=== PATIENT | female | born 1980 | race Caucasian/White ===

== ENCOUNTER 2017-01-13 18:59 | Emergency (ER) | payer OTHER ==
[2017-01-13 19:27] LABS: PH,URINE 6.5 (5.0 - 9.0); URINE BILIRUBIN NEGATIVE (NEGATIVE); URINE BLOOD TRACE (NEGATIVE); URINE GLUCOSE (UA) NORMAL (NORMAL); URINE KETONE NEGATIVE (NEGATIVE); URINE LEUKOCYTE ESTERASE TRACE (NEGATIVE); URINE NITRATE NEGATIVE (NEGATIVE); URINE PROTEIN NEGATIVE (NEGATIVE)
[2017-01-13 19:40] LABS: URINE AMORPHOUS SEDIMENT 2+; URINE BACTERIA 1+ (NONE SEEN); URINE RBC 0-5 /[HPF] (0-2); URINE WBC 0-5 /[HPF] (0-5)
[2017-01-13 19:50] LABS: BASO # 0.1 10_X3_uL (0.0-0.1); BASO % 0.7 % (0.1-1.2); EOS # 0.6 10_X3_uL (0.0-0.4); EOS % 5.8 % (0.7-5.8); GRAN # 6.8 10_X3_uL (1.6-6.1); GRAN % 63.7 % (34.0-71.1); HEMATOCRIT 44.7 % (34-45); HEMOGLOBIN 15.8 g/dL (11.2-15.7); LYMPH # 2.4 10_X3_uL (1.2-3.7); MEAN CORPUSCULAR HEMOGLOBIN 34.1 pg (27.0-33.0); MEAN CORPUSCULAR HGB CONC 35.3 g/dL (32.0-36.0); MEAN CORPUSCULAR VOLUME 96.3 fL (79-95); MEAN PLATELET VOLUME 10.3 fl (7.5-11.5); MONO # 0.7 10_X3_uL (0.2-0.9); MONO % 6.8 % (4.7-12.5); PLATELET COUNT 285 x10_3/uL (182-369); RED BLOOD COUNT 4.64 x10_6/uL (3.9-5.2); RED CELL DISTRIBUTION WIDTH 12.4 % (11.7-14.4); WHITE BLOOD COUNT 10.6 x10_3/uL (4.0-10.0)
[2017-01-13 20:01] LABS: BLOOD UREA NITROGEN 15 mg/dL (7-18); CALCIUM 9.7 mg/dL (8.7-10.7); CARBON DIOXIDE 26 mmol/L (21-32); CREATININE 0.8 mg/dL (0.6-1.3); GLUCOSE,RANDOM 92 mg/dL (70-99); SODIUM 140 mmol/L (136-145)
== END 2017-01-13 22:21 | disposition home or self-care (01) ==
LOC: ER 18:59
PROVIDERS: Emergency Medicine
DX: N20.0 Calculus of kidney (principal); K76.89 Other specified diseases of liver; N83.201 Unspecified ovarian cyst, right side; N83.202 Unspecified ovarian cyst, left side; R10.9 Unspecified abdominal pain; R10.31 Right lower quadrant pain; F41.9 Anxiety disorder, unspecified; G43.909 Migraine, unspecified, not intractable, without status migrainosus; F17.210 Nicotine dependence, cigarettes, uncomplicated; Z88.0 Allergy status to penicillin; Z88.8 Allergy status to other drugs, medicaments and biological substances; Z88.1 Allergy status to other antibiotic agents; Z79.899 Other long term (current) drug therapy
CPT/HCPCS: 36415; 74150; 80048; 81001; 81025; 85025; 96372; 99284-25; J1170